=== PATIENT | male | born 1955 | race Caucasian/White ===

== ENCOUNTER 2016-11-20 06:32 | Day surgery (SDC) | payer MEDICAID ==
[~2016-11-20] VITALS: Ht 170.2 cm; Wt 54.4 kg
[2016-11-20 07:13] VITALS: BP 128/85
[2016-11-20 09:06] VITALS: BP 105/67
== END 2016-11-20 10:55 | disposition home or self-care (01) ==
LOC: GI 06:32 → OR 07:30 → GI 10:55
PROVIDERS: Internal Medicine Gastroenterology
PROC: 0DBB8ZX Excision of Ileum, Via Natural or Artificial Opening Endoscopic, Diagnostic (ICD-10-PCS; 2016-11-20)
PROC: 0DBE8ZX Excision of Large Intestine, Via Natural or Artificial Opening Endoscopic, Diagnostic (ICD-10-PCS; principal; 2016-11-20 07:30)
DX: K52.9 Noninfective gastroenteritis and colitis, unspecified (principal); K63.3 Ulcer of intestine
CPT/HCPCS: 45378; 86480; 86592; J1200; J1610; J2250; J2310; J3010; J3490